=== PATIENT | female | born 1990 | race Caucasian/White ===

== ENCOUNTER 2024-06-12 19:30 | Emergency (ER) | payer BC, OTHER, SELFPAY ==
[2024-06-12] MEDS: Tetracaine HCl/PF 0.5% 4 ML Bottle EYELF ONE (19:51)
[2024-06-12] MEDS: Take Home: traMADol 50 MG, 4 Tab Pack PO ONE (20:12)
[2024-06-12] MEDS: Erythromycin Base 0.5% Ophth Oint 3.5 GM Tube EYELF ONE (20:12)
== END 2024-06-12 20:23 | disposition home or self-care (01) ==
LOC: MERGE 19:30 → LL.ED 19:30
DX: S05.02XA Injury of conjunctiva and corneal abrasion without foreign body, left eye, initial encounter (principal); I10 Essential (primary) hypertension; E66.9 Obesity, unspecified; Z91.012 Allergy to eggs; Z79.899 Other long term (current) drug therapy; X58.XXXA Exposure to other specified factors, initial encounter
CPT/HCPCS: 99283; A9270-GY; J3490